=== PATIENT | female | born 1955 | race Caucasian/White ===

== ENCOUNTER 2017-02-10 12:29 | Inpatient (IN) ==
[2017-02-10] MEDS ORDERED: *HR* Propofol 200 MG/20 ML VIAL IVP ONE (12:41)
[2017-02-10] MEDS ORDERED: *HR* FentaNYL (PF) 100 MCG/2 ML VIAL ONE (12:41)
[2017-02-10] MEDS ORDERED: *HR* Midazolam HCl 2 MG/2 ML VIAL ONE (12:41)
[2017-02-10] MEDS ORDERED: Lidocaine -MPF 2% 2 ML VIAL ONE (12:41)
[2017-02-10] MEDS ORDERED: Lidocaine -MPF 4% 5 ML AMPUL ONE (12:41)
--- NOTE | 2017-02-10 12:50 | Anesthesia Evaluation PreOp ---
Date of Encounter: 02/10/17 Time of Encounter: 12:48 - Past History Planned Operation: Dutch fundoplication Cardiac History: Denies any Significant Hx Pulmonary History: Denies Any Significant HX DIRECTOR OF MATERIALS MANAGEMENT History: Denies Any Significant HX Other Medical History: Thyroid (nodule), Other (paraesophageal hernia) Anesthesia History: No Prior Anesthetic Complications, Past Anesthesia (foot bone spurs removal, T&A) Alcohol Use: none Drug use: none Medications and Allergies No Known Home Drugs 02/10/17 [History] Allergies No Known Allergies Allergy (Verified 02/10/17 12:44) - Meds/Allergy Pre-op Review Medications Reviewed: Yes Allergies Reviewed: Yes Beta Blockers on Current Med List: No Anesthesia Results - Labs Laboratory Tests 10/21/16 02/01/17 08:40 13:38 Hgb 13.3 Hct 39.7 Plt Count 178 Sodium 141 Potassium 4.2 BUN 9 Creatinine 0.70 Anesthesia Exam Height: 70in Weight: 160lbs NPO (# of Hours): >8 Pain Scale: 0 Pain Scale Used: Numeric (1 - 10) - HEENT Pupil (Motor): EOMI Mallampati: II Teeth: Normal Oral Opening: Greater than 3 - DIRECTOR OF MATERIALS MANAGEMENT LOC: Oriented DIRECTOR OF MATERIALS MANAGEMENT Motor: Normal RUE, Normal LUE, Normal RLE, Normal LLE, Normal Face DIRECTOR OF MATERIALS MANAGEMENT Sensory: Normal: RUE, LUE, RLE, LLE, Face - Cardiac Rhythm: Regular Murmur: None - Pulmonary Breath Sounds: bilateral Clear Respiratory Effort: Symmetrical Anesthesia Assess/Plan ASA Score: 1 Modified Siler Scale for Level of Consciousness: Cooperative, oriented, and tranquil Anesthetic Plan: General Monitoring Plan: Standard Monitors Recovery Plan: PACU (Discussed risks of GA, questions answered and agrees to proceed.)
[2017-02-10] MEDS ORDERED: CeFAZolin Pre 2,000 MG/100 ML 2,000 MG/100 ML BAG IVPB ONE (13:07)
[2017-02-10] MEDS ORDERED: Lidocaine -MPF 1% 2 ML VIAL ID ONE (13:07)
--- NOTE | 2017-02-10 13:07 | History & Physical Report ---
Date of Encounter: 02/10/17 Time of Encounter: 13:00 24 Hour HP Update - Instructions Instructions: If the History and Physical is less than 30 days old and was completed prior to A.M. admission and or procedure and has NOT been updated on calendar day of procedure please complete this update prior to performing procedure. - Update Patient reports changes in Medical Condition: No Changes in examination, assessment, or condition: No Changes in Medication: No Preop tests/diagnostics Reviewed: Yes Surgery Remains Indicated: Yes Consent for Planned Operative Procedure(s) Verified: Yes - Pre-Operative Checklist Preoperative Checklist Indicated: Yes Prophylactic Antibiotic Ordered: Yes Home Medications Include Beta Berkley: No Is VTE Prophylaxis Indicated?: Yes
[2017-02-10] MEDS ORDERED: Ringers Solution, Lactated 1,000 ML IVC SCH ×2 (13:15→14:15)
[2017-02-10] MEDS ORDERED: *HR* Phenylephrine 10 MG/ML VIAL ONE (13:39)
[2017-02-10] MEDS ORDERED: *HR* HYDROmorphone 2 MG/ML SYRINGE ONE (13:54)
[2017-02-10] MEDS ORDERED: Dexamethasone 4 MG/ML VIAL ONE (13:55)
[2017-02-10] MEDS ORDERED: Neostigmine Methylsulfate 3 MG/3 ML SYRINGE ONE (13:55)
[2017-02-10] MEDS ORDERED: Ondansetron 4 MG/2 ML VIAL ONE (13:55)
[2017-02-10] MEDS ORDERED: *HR* HYDROmorphone (PF) 1 MG/ML SYRINGE IVP PRN (14:06)
[2017-02-10] MEDS ORDERED: *HR* Promethazine 25 MG/ML VIAL IVP PRN (14:06)
[2017-02-10] MEDS ORDERED: Ondansetron 4 MG/2 ML VIAL IVP ONE (14:06)
[2017-02-10] MEDS ORDERED: *HR* Meperidine 25 MG/ML SYRINGE IVP PRN (14:06)
[2017-02-10] MEDS ORDERED: *HR* Rocuronium Bromide 50 MG/5 ML VIAL ONE (14:30)
[2017-02-10] MEDS ORDERED: Acetaminophen IV 1,000 MG/100 ML INFUS..BTL ONE (15:32)
--- NOTE | 2017-02-10 15:42 | Operative Note ---
Date of procedure: 02/10/17 Pre-op diagnosis: Paraesophageal hernia with intermittent gastric obstruction Post-op diagnosis: same Procedure: Open repair of paraesophageal hernia. Open Maria Del Rosario fundoplication Anesthesia: DARRYL Surgeon: Alexandr Bustamante Estimated blood loss (cc): 50 Specimen: Hernia sac Condition: stable Disposition: PACU Procedure in Detail: After informed consent the patient was taken to the major operating suite placed in supine position and given adequate general anesthetic. The abdomen was prepped and draped in sterile fashion utilizing ChloraPrep standard techniques. Timeout was taken patient is identified. Made an upper midline incision between the xiphoid and the umbilicus. The abdomen was entered a significant portion of the stomach was in the chest. I divided the triangular ligament between the lateral left lobe of the liver and the diaphragm. The lateral segment of the left lobe was then folded downward and medial I divided the lesser omentum and entered the lesser sac. There was a complex hernia sac involving the diaphragmatic hiatus. I divided the anterior attachments to the stomach. A lighted bougie was placed in the esophagus to aid in esophageal identification and to assist in later Maria Del Rosario fundoplication for the appropriate tension. The right memo of the diaphragm was dissected and there was an extensive hernia sac removed from the chest posterior to the esophagus. This was divided. The dissection along the cardia of the stomach and the short gastrics was quite difficult. The hernia sac extended almost a third [address] the way down the greater curvature. This sac was folded back on itself over this entire length making the dissection quite difficult. I was able to finally divide the short gastrics to the cardia between surgical clips and using Harmonic scalpel on the gastric side. I was able to identify the left memo of the diaphragm from this lateral dissection. I fully mobilized and surrounded the esophagus. I placed a Bebe drain around the gastroesophageal junction and retracted gastroesophageal junction to the left there was even more hernia sac identified and this was removed under direct vision. The left and right memo of the diaphragm were now visible and I was able to repair the hiatal hernia using 4 stitches of 2-0 Ethibond with pledgets the cardia of the stomach was then brought behind the gastroesophageal junction and I performed a drop test and a shoeshine test. There was adequate mobility in the cardia. I created a Maria Del Rosario fundoplication using 3 stitches of 2-0 Ethibond with pledgets around a lighted bougie in the esophagus. This gave an excellent technical result. I placed 2 shoulder stitches between the Maria Del Rosario fundoplication and the diaphragm area total blood loss was 50 mL. The stomach was under no tension and intra-abdominal and the hiatus was closed to the appropriate size. The abdomen was irrigated with copious amounts of antibiotic containing solution. Midline was closed with looped 0 PDS. The skin was closed with 2-0 Vicryl and skin clips. She tolerated the procedure well.
--- NOTE | 2017-02-10 16:50 | Anesthesia Evaluation Post Op ---
Date of Encounter: 02/10/17 Time of Encounter: 16:50 - Vital Signs Vital Signs: Vital Signs/O2 Sat/Glucose, Most Current Temp Pulse Resp BP Pulse Ox 02/10/17 16:27 98.3 F 58 12 112/68 98 02/10/17 16:17 98.3 F 61 12 115/63 99 02/10/17 16:07 62 12 116/65 98 02/10/17 15:57 57 12 111/68 97 02/10/17 15:47 97.9 F 64 12 111/42 98 02/10/17 13:13 98.3 F 84 18 109/70 98 - Lungs Lungs: Clear Ascult./Percussion - Airway Airway: Non-obstructed - Cardiovascular Regular Rate - Mental Status Mental Status: Alert & Oriented, Answers Appropriately - Pain Pain Scale: 0 - Nausea Vomiting Nausea Vomiting: Not Present - Hydration Hydration: Tolerates oral liquids - Discharge PostOp Status: Discharge Patient to home
[2017-02-10] MEDS ORDERED: Ondansetron 4 MG/2 ML VIAL IVP PRN (16:55)
[2017-02-10] MEDS ORDERED: *HR* Metoprolol 5 MG/5 ML VIAL IVP PRN (16:55)
[2017-02-10] MEDS: 0.9 % Sodium Chloride 1,000 ML IVC SCH (17:27)
[2017-02-10] MEDS: *HR* HYDROmorphone (PF) 1 MG/ML SYRINGE IVP PRN ×3 (17:34→23:36)
[2017-02-10] MEDS ORDERED: *HR* Heparin 5,000 UNIT/ML VIAL SQ SCH (18:00)
[2017-02-10] MEDS: *HR* Heparin 5,000 UNIT/ML VIAL SQ SCH (18:20)
[2017-02-10] MEDS: ceFAZolin 2,000 MG in D5% in Water 100 ML IVPB SCH ×2 (18:26→23:36)
[2017-02-11] MEDS: *HR* OxyCODONE/APAP 5/325 TABLET PO PRN (03:22)
[2017-02-11 05:27] LABS: Basophils % 0.1 %; Hematocrit 39.9 % (35.3-44.9); Hemoglobin 12.8 g/dL (11.5-15.4); Immature Granulocytes % 0.4 % (0-4); Lymphocytes # 0.5 K/mcL (0.6-4.6); Lymphocytes % 6.2 %; Mean Corpuscular HGB Conc 32.1 g/dL (31.6-35.5); Mean Corpuscular Hemoglobin 28.8 pg (28.0-33.3); Mean Corpuscular Volume 89.9 fL (83.0-100.0); Monocytes # 0.5 K/mcL (0.0-1.3); Monocytes % 6.4 %; Neutrophils # 7.2 K/mcL (1.6-8.9); Platelet Count 163 K/mcL (140-400); Red Blood Count 4.44 M/mcL (3.82-4.97); Red Cell Distribution Width 12.5 % (11.5-14.5); Segmented Neutrophils % 86.9 %
[2017-02-11 05:40] LABS: BUN/Creatinine Ratio 17 (6-26); Blood Urea Nitrogen 12 mg/dL (7-20); Calcium 8.7 mg/dL (8.6-10.8); Carbon Dioxide 27 mEq/L (19-29); Chloride 104 mEq/L (98-109); Glucose 124 mg/dL (70-99); Osmolality,Calculated 289 (280-300); Potassium 4.3 mEq/L (3.5-4.5); Sodium 139 mEq/L (136-145); eGFR For African Americans > 60 (> 60); eGFR For Non-African Americans > 60 (> 60)
[2017-02-11] MEDS: *HR* Heparin 5,000 UNIT/ML VIAL SQ SCH ×2 (06:49→18:04)
[2017-02-11] MEDS: 0.9 % Sodium Chloride 1,000 ML IVC SCH ×2 (06:49→19:53)
--- NOTE | 2017-02-11 07:32 | General Surgery Progress Note ---
Date of Encounter: 02/11/17 Time of Encounter: 06:00 - Assessment and Plan (1) Paraesophageal hernia Current Visit: Yes Status: Acute POD #1 for; open repair of paraesophageal hernia. Open Maria Del Rosario fundoplication. with Dr. Bustamante on 02/10/17. On physical examination patient has abdominal tenderness as expected postoperatively, the patient denies tachycardia, chest pain, dysphasia. She denies passing gas or having a bowel movement. Start clear liquid diet with volume restriction of 300 mL per shift Supportive care and pain control IV fluids to maintain hydration at 75 ml per hour Incentive spirometer every 1 hour while awake Repeat am labs I and O's. Serial abdominal exams Vital signs per protocol Elevate head of bed to 30 degrees Daily dressing change- complete today PPI therapy daily Protonix 40 mg DVT prophylaxis heparin 500 units subcutaneous every 12 hours Encourage ambulation. ambulate patient and have her walk the hallways 3 times a day. Up to chair BID. Will continue to follow and assess. If patient continues to progress may consider DC 2-3 days if indicated. The assessment and plan as outlined above was discussed with the patient and/or family members who expressed understanding and agreement. All questions were answered. (2) Gastric outlet obstruction Current Visit: Yes Status: Acute Subjective Patient reports: still having pain, voiding w/o difficulty, no flatus, no bowel movement, nausea, afebrile Narrative: The patient was seen and examined. Patient states that she has abdominal tenderness postoperatively however, she has been up to urinate without difficulty. Patient denies passing gas or having a bowel movement. Patient has tolerated her ice chips well. She admits some nausea that is transient. Patient has bowel sounds. Will encourage ambulation. Objective Vital Signs - Last 8 Hours Temp Pulse Resp BP Pulse Ox 02/11/17 06:40 98.9 F 79 16 102/62 96 02/11/17 03:58 98.1 F 80 14 103/66 94 02/10/17 23:56 98.1 F 70 14 97/60 93 Intake and Output 02/10/17 02/10/17 02/11/17 15:59 23:59 07:59 Intake Total 100 / 100 100 / 100 1160 / 1160 Output Total 50 / 50 300 / 300 200 / 200 Balance 50 / 50 -200 / -200 960 / 960 Intake: IV Fluids 100 / 100 100 / 100 1100 / 1100 0.9 % Sodium Chloride 1, 1000 / 1000 000 ML @ 75 mls/hr IVC . [id number] [facility] Rx#: [id number] Ancef Premix 2,000 MG/100 100 / 100 ML 2,000 mg In 100 ml @ 200 mls/hr IVPB PREOP ONE Rx#:[id number] Ancef 2,000 MG In 100 / 100 100 / 100 Dextrose 5% 100 ML @ 200 mls/hr IVPB Q8HR [facility] Rx#: [id number] Oral 0 / 0 60 / 60 Output: Urine 300 / 300 200 / 200 Estimated Blood Loss 50 / 50 Other: Weight 73.028 kg Blood Glucose* 147 95 - General physical appearance well developed, well nourished, no distress, moderate pain - Eyes PERRL, normal ocular movement - ENT normal nares, normal mucosa, atraumatic, normocephalic, CN 2-12 grossly intact - Neck Neck exam: no masses, trachea midline, no lymphadectomy - Respiratory normal expansion, normal respiratory effort, clear to auscultation - Cardiovascular Cardiovascular exam: Present: RRR, no murmurs/rubs/gallops. Absent: JVD - Abdomen Abdomen: Present: bowel sounds present, soft, tender (Postoperative tenderness as expected). Absent: guarding, rebound, rigid, peritoneal Abdominal Tenderness: diffusely - Incision Incision: Present: clean and dry, intact - Integumentary no rash, no abnormal pigmentation - Neurologic CN 2-12 grossly intact, normal coordination, normal sensation - Musculoskeletal normal gait, normal posture - Psychiatric oriented to time, oriented to person, oriented to place, speech is normal, memory intact - Labs 02/11/17 04:27 02/11/17 04:27 Diabetes panel 02/11/17 Range/Units 04:27 Sodium 139 (136-145) mEq/L Potassium 4.3 (3.5-4.5) mEq/L Chloride 104 (98-109) mEq/L Carbon Dioxide 27 (19-29) mEq/L BUN 12 (7-20) mg/dL Creatinine 0.72 (0.57-1.11) mg/dL Glucose 124 H (70-99) mg/dL Calcium 8.7 (8.6-10.8) mg/dL Calcium panel 02/11/17 Range/Units 04:27 Calcium 8.7 (8.6-10.8) mg/dL Pituitary panel 02/11/17 Range/Units 04:27 Sodium 139 (136-145) mEq/L Potassium 4.3 (3.5-4.5) mEq/L Chloride 104 (98-109) mEq/L Carbon Dioxide 27 (19-29) mEq/L BUN 12 (7-20) mg/dL Creatinine 0.72 (0.57-1.11) mg/dL Glucose 124 H (70-99) mg/dL Calcium 8.7 (8.6-10.8) mg/dL Adrenal panel 02/11/17 Range/Units 04:27 Sodium 139 (136-145) mEq/L Potassium 4.3 (3.5-4.5) mEq/L Chloride 104 (98-109) mEq/L Carbon Dioxide 27 (19-29) mEq/L BUN 12 (7-20) mg/dL Creatinine 0.72 (0.57-1.11) mg/dL Glucose 124 H (70-99) mg/dL Calcium 8.7 (8.6-10.8) mg/dL - VTE Documentation of Mechanical Device: Intermittent pneumatic compression device Consult Discharge Plan - Plan Referrals: Alexandr Bustamante MD [Partnered Physician] - 03/01/17 11:00 am Leilani Cade CNP [Primary Care Provider] - - Attending Attestation I examined this patient and my medical decision-making was reviewed with the MANAGER MONITORING/PA/Advanced Practice Nurse/Resident Physician. I agree with the documented findings, disposition and treatment plan as described except to the extent set forth below. The patient is seen and evaluated morning rounds. She is having some neck and shoulder pain but no chest pain. She has a few bowel sounds. We will start volume restricted clear liquids today Alexandr Bustamante MD FACS
[2017-02-11] MEDS: Pantoprazole 40 MG VIAL IVP SCH (07:46)
[2017-02-11] MEDS: *HR* HYDROmorphone (PF) 1 MG/ML SYRINGE IVP PRN (12:51)
[2017-02-12] MEDS: *HR* Heparin 5,000 UNIT/ML VIAL SQ SCH ×2 (05:20→18:48)
[2017-02-12 06:12] LABS: Basophils % 0.1 %; Hemoglobin 13.2 g/dL (11.5-15.4); Immature Granulocytes % 0.5 % (0-4); Lymphocytes # 0.8 K/mcL (0.6-4.6); Lymphocytes % 8.2 %; Mean Corpuscular Hemoglobin 29.1 pg (28.0-33.3); Mean Corpuscular Volume 88.3 fL (83.0-100.0); Mean Platelet Volume 10.7 fL (9.4-12.4); Monocytes # 0.7 K/mcL (0.0-1.3); Neutrophils # 8.5 K/mcL (1.6-8.9); Platelet Count 142 K/mcL (140-400); Red Blood Count 4.53 M/mcL (3.82-4.97); Red Cell Distribution Width 12.7 % (11.5-14.5); Segmented Neutrophils % 84.2 %
[2017-02-12 06:23] LABS: BUN/Creatinine Ratio 13 (6-26); Blood Urea Nitrogen 8 mg/dL (7-20); Carbon Dioxide 26 mEq/L (19-29); Chloride 105 mEq/L (98-109); Glucose 129 mg/dL (70-99); Osmolality,Calculated 286 (280-300); Potassium 3.9 mEq/L (3.5-4.5); Sodium 138 mEq/L (136-145); eGFR For African Americans > 60 (> 60); eGFR For Non-African Americans > 60 (> 60)
[2017-02-12] MEDS: Pantoprazole 40 MG VIAL IVP SCH (08:33)
[2017-02-12] MEDS ORDERED: Acetaminophen 325 MG TABLET PO ONE (08:39)
[2017-02-12] MEDS: 0.9 % Sodium Chloride 1,000 ML IVC SCH ×2 (08:41→21:25)
--- NOTE | 2017-02-12 09:18 | General Surgery Progress Note ---
Date of Encounter: 02/12/17 Time of Encounter: 06:00 - Assessment and Plan (1) Paraesophageal hernia Current Visit: Yes Status: Acute POD #2 for; open repair of paraesophageal hernia. Open Maria Del Rosario fundoplication. with Dr. Bustamante on 02/10/17. On physical examination patient has abdominal tenderness as expected postoperatively, the patient denies tachycardia, chest pain, dysphasia. She still denies passing gas or having a bowel movement. Patient has not been ambulatory in the hallways as instructed yesterday. Patient reports that she "was feeling lazy ". Patient states that she will ambulate down the hallways today. Patient says that she is nauseous when she eats sweets however she has not vomited. Patient states that she is tolerating her clear liquids and ice chips without difficulty. Continue clear liquid diet with volume restriction of 300 mL per shift Supportive care and pain control IV fluids to maintain hydration at 75 ml per hour Incentive spirometer every 1 hour while awake Repeat am labs I and O's. Serial abdominal exams Vital signs per protocol Elevate head of bed to 30 degrees Daily dressing change- complete today PPI therapy daily Protonix 40 mg DVT prophylaxis heparin 500 units subcutaneous every 12 hours Encourage ambulation. ambulate patient and have her walk the hallways 3 times a day. Up to chair BID. Will continue to follow and assess. If patient continues to progress may consider DC 1-2 days if indicated. The assessment and plan as outlined above was discussed with the patient and/or family members who expressed understanding and agreement. All questions were answered. (2) Gastric outlet obstruction Current Visit: Yes Status: Acute Subjective Patient reports: still having pain, pain is less, tolerating liquids well, voiding w/o difficulty, no flatus, no bowel movement, nausea, afebrile Narrative: The patient was seen and examined. Patient reports continued abdominal discomfort and tenderness and skin sensitivity to light touch. However, she states that this is a little improved. Patient has been up to ambulate around her room however she admits that she "was feeling lazy yesterday "and did not go out in the hallway to ambulate as instructed. Patient states she will ambulate hallways today. Patient has been urinating without difficulty. She has been tolerating her clear liquid diet with fluid restriction of 300 mL per shift well although she states she has intermittent episodes of nausea not related to food. Patient denies passage of gas or bowel movement. Objective Vital Signs - Last 8 Hours Temp Pulse Resp BP Pulse Ox 02/12/17 06:55 99.0 F 96 14 124/72 95 02/12/17 03:06 98.0 F 89 14 105/62 95 Intake and Output 02/11/17 02/12/17 02/12/17 23:59 07:59 15:59 Intake Total 1000 / 1000 1360 / 1360 Output Total 800 / 800 850 / 850 Balance 200 / 200 -850 / -850 1360 / 1360 Intake: IV Fluids 1000 / 1000 1000 / 1000 0.9 % Sodium Chloride 1, 1000 / 1000 1000 / 1000 000 ML @ 75 mls/hr IVC . [id number] Rx#: [id number] Oral 360 / 360 Output: Urine 800 / 800 850 / 850 Other: # Bowel Movements 0 - General physical appearance well developed, well nourished, moderate distress, moderate pain - Eyes PERRL, normal ocular movement - ENT normal nares, atraumatic, normocephalic, CN 2-12 grossly intact - Neck Neck exam: no masses, trachea midline - Respiratory normal expansion, normal respiratory effort, clear to auscultation - Cardiovascular Cardiovascular exam: Present: RRR, no murmurs/rubs/gallops. Absent: JVD - Abdomen Abdomen: Present: bowel sounds present, soft, tender (postoperative as expected) . Absent: distended, guarding, rebound, rigid, peritoneal - Incision Incision: Present: clean and dry, intact - Integumentary no rash, no abnormal pigmentation - Neurologic CN 2-12 grossly intact, normal coordination - Musculoskeletal normal posture - Psychiatric oriented to time, oriented to person, oriented to place, speech is normal, memory intact - Labs 02/12/17 05:34 02/12/17 05:34 Diabetes panel 02/12/17 Range/Units 05:34 Sodium 138 (136-145) mEq/L Potassium 3.9 (3.5-4.5) mEq/L Chloride 105 (98-109) mEq/L Carbon Dioxide 26 (19-29) mEq/L BUN 8 (7-20) mg/dL Creatinine 0.64 (0.57-1.11) mg/dL Glucose 129 H (70-99) mg/dL Calcium 9.0 (8.6-10.8) mg/dL Calcium panel 02/12/17 Range/Units 05:34 Calcium 9.0 (8.6-10.8) mg/dL Pituitary panel 02/12/17 Range/Units 05:34 Sodium 138 (136-145) mEq/L Potassium 3.9 (3.5-4.5) mEq/L Chloride 105 (98-109) mEq/L Carbon Dioxide 26 (19-29) mEq/L BUN 8 (7-20) mg/dL Creatinine 0.64 (0.57-1.11) mg/dL Glucose 129 H (70-99) mg/dL Calcium 9.0 (8.6-10.8) mg/dL Adrenal panel 02/12/17 Range/Units 05:34 Sodium 138 (136-145) mEq/L Potassium 3.9 (3.5-4.5) mEq/L Chloride 105 (98-109) mEq/L Carbon Dioxide 26 (19-29) mEq/L BUN 8 (7-20) mg/dL Creatinine 0.64 (0.57-1.11) mg/dL Glucose 129 H (70-99) mg/dL Calcium 9.0 (8.6-10.8) mg/dL - VTE Documentation of Mechanical Device: Intermittent pneumatic compression device Consult Discharge Plan - Plan Referrals: Alexandr Bustamante MD [Partnered Physician] - 03/01/17 11:00 am Leilani Cade CNP [Primary Care Provider] - - Attending Attestation I examined this patient and my medical decision-making was reviewed with the FORKLIFT TRUCK OPERATOR/PA/Advanced Practice Nurse/Resident Physician. I agree with the documented findings, disposition and treatment plan as described except to the extent set forth below. The patient is seen and evaluated on morning rounds. She is doing quite well with no chest pain. Her reflux symptoms and dysphagia are gone. She is to ambulate more aggressively today. Maintaining clear liquid diet Alexandr Bustamante MD FACS
[2017-02-12] MEDS: Acetaminophen 325 MG TABLET PO PRN (16:02)
[2017-02-12] MEDS: *HR* OxyCODONE/APAP 5/325 TABLET PO PRN (18:48)
[2017-02-13] MEDS: *HR* Heparin 5,000 UNIT/ML VIAL SQ SCH (05:06)
[2017-02-13 05:35] LABS: Basophils % 0.2 %; Hematocrit 34.8 % (35.3-44.9); Immature Granulocytes % 0.5 % (0-4); Lymphocytes % 15.8 %; Mean Corpuscular Hemoglobin 29.5 pg (28.0-33.3); Mean Corpuscular Volume 89.2 fL (83.0-100.0); Monocytes # 0.6 K/mcL (0.0-1.3); Monocytes % 8.9 %; Neutrophils # 4.6 K/mcL (1.6-8.9); Platelet Count 120 K/mcL (140-400); Red Cell Distribution Width 12.7 % (11.5-14.5); Segmented Neutrophils % 74.6 %
[2017-02-13 05:36] LABS: Hemoglobin 11.5 g/dL (11.5-15.4)
[2017-02-13 05:55] LABS: Calcium 8.5 mg/dL (8.6-10.8); Carbon Dioxide 30 mEq/L (19-29); Chloride 107 mEq/L (98-109); Glucose 110 mg/dL (70-99); Osmolality,Calculated 290 (280-300); Potassium 3.6 mEq/L (3.5-4.5); Sodium 141 mEq/L (136-145); eGFR For African Americans > 60 (> 60); eGFR For Non-African Americans > 60 (> 60)
[2017-02-13 06:21] LABS: BUN/Creatinine Ratio 10 (6-26); Blood Urea Nitrogen 6 mg/dL (7-20)
[2017-02-13] MEDS: Pantoprazole 40 MG VIAL IVP SCH (07:43)
[2017-02-13] MEDS: Acetaminophen 325 MG TABLET PO PRN (07:43)
--- NOTE | 2017-02-13 08:20 | Discharge Summary ---
<Naya Clark - Last Filed: 02/13/17 11:39> Date of Encounter: 02/13/17 Time of Encounter: 07:00 - Discharge Diagnosis (1) Paraesophageal hernia Priority: Primary Status: Resolved (2) Gastric outlet obstruction Priority: Primary Status: Resolved - Discharge Medications Prescriptions: OxyCODONE/APAP 5/325 [Percocet 5/325 MG] 1 each PO Q4HR #30 tablet Acetaminophen [Tylenol] 650 mg PO Q6HR #30 tablet Ondansetron HCl [Zofran] 4 mg PO Q6HR #30 tablet Docusate Sodium 100 mg PO BID #60 capsule Home Medications: Acetaminophen [Tylenol] 650 mg PO Q6HR #30 tablet 02/13/17 [Rx] Docusate Sodium 100 mg PO BID #60 capsule 02/13/17 [Rx] Ondansetron HCl [Zofran] 4 mg PO Q6HR #30 tablet 02/13/17 [Rx] OxyCODONE/APAP 5/325 [Percocet 5/325 MG] 1 each PO Q4HR #30 tablet 02/13/17 [Rx] Allergies/Adverse Reactions: Allergies No Known Allergies Allergy (Verified 02/10/17 12:44) General Surgery Exam Initial Vital Signs Temp Pulse Resp BP Pulse Ox 98.3 F 84 18 109/70 98 02/10/17 13:13 02/10/17 13:13 02/10/17 13:13 02/10/17 13:13 02/10/17 13:13 - General physical appearance well developed, well nourished, no distress, moderate pain - Eyes PERRL, normal ocular movement - ENT normal mucosa, atraumatic, normocephalic, CN 2-12 grossly intact - Neck no masses, trachea midline - Respiratory normal expansion, normal respiratory effort, clear to auscultation - Cardiovascular Cardiovascular exam: Present: RRR, no murmurs/rubs/gallops. Absent: JVD - Abdomen Abdomen general surgery: Present: bowel sounds present, soft, tender ( Postoperative tenderness as expected) - Incision Incision: Present: clean and dry, intact - Integumentary Integumentary general surgery: Present: warm and dry, no abnormal pigmentation. Absent: rash - Neurologic Present: CN 2-12 grossly intact, normal coordination, normal sensation - Musculoskeletal Present: normal gait, normal posture - Psychiatric Psychiatric general surgery: Present: A&Ox3, appropriate, speech is normal, memory intact Date of admission: 02/10/17 16:43 Primary care physician: Leilani Cade Discharging clinician: Alexandr Bustamante Anticipated date of discharge: 02/13/17 - Patient Status Disposition: Home, Self-Care Condition: Good Overall status at discharge: patient is progressing back to baseline - Discharge Instructions Follow Up With: Alexandr Bustamante MD [Partnered Physician] - 03/01/17 11:00 am Leilani Cade, COMMUTATOR UNDERCUTTER [Primary Care Provider] - Additional Instructions: 1. May shower today. No tub bath for 2 weeks. 2. Wash incisions with soap and water and pat dry daily. 3. No lifting more than 10-15 lbs for 4-[address] off narcotics for over 24 hours and able to react safely in the car. 5. May climb stairs. Wound care: -Wash incisions with soap and water in the shower, pack with quarter-inch plain gauze, cover with 4 x 4 gauze and tape to secure daily. - Diet and Activity Activity: increase activity as tolerated Diet: other (Full liquid diet) - Hospital Course Hospital course: Ms. Baldwin is a 61 year old female with a history of paraesophageal hernia with intermittent gastric obstruction who was surgically treated with an open repair of her esophageal hernia and open Maria Del Rosario fundoplication by on 09/28. Patient tolerated the procedure well. Patient has been recovering well. She has been up to ambulate without difficulty. She has been urinating without difficulty. She has been passing gas. She has been tolerating her full liquid diet well and swallowing without difficulty. She denies nausea or vomiting. She has normoactive bowel sounds and minimal tenderness over incision site as expected. No peritoneal signs. No chest pain or palpitations. Pain is under control. Patient states that she would rather take just Tylenol then narcotics. Vital stable. Afebrile. Patient is clear from a surgical standpoint to be discharged home. - Time Spent with Patient Total time spent providing and/or coordinating discharge services: Less than 30 minutes Labs on day of discharge: Labs from last 24 hours 02/13/17 02/13/17 04:57 04:57 WBC 6.2 RBC 3.90 Hgb 11.5 D Hct 34.8 L MCV 89.2 MCH 29.5 MCHC 33.0 RDW 12.7 Plt Count 120 L MPV 11.0 Immature Gran % 0.5 Seg Neutrophils % 74.6 Lymphocytes % 15.8 Monocytes % 8.9 Eosinophils % 0.0 Basophils % 0.2 Neutrophils # 4.6 Lymphocytes # 1.0 Monocytes # 0.6 Eosinophils # 0.0 Basophils # 0.0 Sodium 141 Potassium 3.6 Chloride 107 Carbon Dioxide 30 H BUN 6 L Creatinine 0.61 Est GFR ( Amer) > 60 Est GFR (Non-Af Amer) > 60 BUN/Creatinine Ratio 10 Glucose 110 H Calculated Osmolality 290 Calcium 8.5 L <Dianna,Alexandr T - Last Filed: 02/13/17 14:48> Date of Encounter: 02/13/17 - Discharge Diagnosis (1) Paraesophageal hernia Status: Resolved (2) Gastric outlet obstruction Status: Resolved General Surgery Exam Initial Vital Signs Temp Pulse Resp BP Pulse Ox 98.3 F 84 18 109/70 98 02/10/17 13:13 02/10/17 13:13 02/10/17 13:13 02/10/17 13:13 02/10/17 13:13 Date of admission: 02/10/17 16:43 Primary care physician: Leilani Cade - Hospital Course Hospital course: Ms. Baldwin is a 61 year old female - Time Spent with Patient Total time spent providing and/or coordinating discharge services: Labs on day of discharge: Labs from last 24 hours 02/13/17 02/13/17 04:57 04:57 WBC 6.2 RBC 3.90 Hgb 11.5 D Hct 34.8 L MCV 89.2 MCH 29.5 MCHC 33.0 RDW 12.7 Plt Count 120 L MPV 11.0 Immature Gran % 0.5 Seg Neutrophils % 74.6 Lymphocytes % 15.8 Monocytes % 8.9 Eosinophils % 0.0 Basophils % 0.2 Neutrophils # 4.6 Lymphocytes # 1.0 Monocytes # 0.6 Eosinophils # 0.0 Basophils # 0.0 Sodium 141 Potassium 3.6 Chloride 107 Carbon Dioxide 30 H BUN 6 L Creatinine 0.61 Est GFR ( Amer) > 60 Est GFR (Non-Af Amer) > 60 BUN/Creatinine Ratio 10 Glucose 110 H Calculated Osmolality 290 Calcium 8.5 L - Attending Attestation I examined this patient and my medical decision-making was reviewed with the STORE MANAGER/PA/Advanced Practice Nurse/Resident Physician. I agree with the documented findings, disposition and treatment plan as described except to the extent set forth below. The patient is seen and evaluated on morning rounds. She has had much improvement in her swallowing and has tolerated full liquids. She is ready for discharge. I will see her one to 2 weeks in the office. Alexandr Bustamante MD FACS
[2017-02-13 10:31] VITALS: BP 110/69
[2017-02-13] MEDS: *HR* OxyCODONE/APAP 5/325 TABLET PO PRN (12:19)
== END 2017-02-13 12:57 | disposition home or self-care (01) | DRG 327 ==
LOC: SAMDAY 12:29 → 3ANU 16:43
PROVIDERS: ADMIT Surgery; ATTEND Surgery

== ENCOUNTER 2017-05-11 16:22 | Inpatient (IN) ==
[2017-05-11] MEDS ORDERED: Naloxone 0.4 MG/ML INJ IVP PRN (16:33)
[2017-05-11] MEDS ORDERED: Acetaminophen IV 1,000 MG/100 ML INFUS..BTL IVPB PRN (16:44)
[2017-05-11] MEDS ORDERED: *HR* HYDROmorphone (PF) 1 MG/ML SYRINGE IVP PRN (16:45)
--- NOTE | 2017-05-11 16:51 | Event Note ---
Date of Encounter: 05/11/17 Time of Encounter: 16:48 Patient was seen and evaluated by Dr. Bustamante in the outpatient clinic today. She had an UGI complete today which is concerning for an esophageal perforation. The patient will be admitted for further work-up and treatment. Please see History and Physical which was complete in [facility] per Dr. Bustamante. A copy has been placed at the nurses station in the patient's folder as well as in the medical record folder to be scanned into medical records. Orders complete.
[2017-05-11 17:42] LABS: Basophils % 0.2 %; Eosinophils % 0.6 %; Hematocrit 40.1 % (35.3-44.9); Hemoglobin 13.5 g/dL (11.5-15.4); Immature Granulocytes % 0.2 % (0-4); Lymphocytes # 1.4 K/mcL (0.6-4.6); Lymphocytes % 26.8 %; Mean Corpuscular HGB Conc 33.7 g/dL (31.6-35.5); Mean Corpuscular Hemoglobin 29.2 pg (28.0-33.3); Mean Corpuscular Volume 86.6 fL (83.0-100.0); Mean Platelet Volume 11.5 fL (9.4-12.4); Monocytes # 0.4 K/mcL (0.0-1.3); Monocytes % 8.3 %; Neutrophils # 3.2 K/mcL (1.6-8.9); Platelet Count 155 K/mcL (140-400); Red Blood Count 4.63 M/mcL (3.82-4.97); Segmented Neutrophils % 63.9 %
[2017-05-11] MEDS: 0.9 % Sodium Chloride 1,000 ML IVC SCH (19:06)
[2017-05-11] MEDS: Pantoprazole 40 MG VIAL IVP SCH (19:06)
[2017-05-11 19:25] LABS: BUN/Creatinine Ratio 15 (6-26); Blood Urea Nitrogen 10 mg/dL (7-20); Carbon Dioxide 26 mEq/L (19-29); Glucose 83 mg/dL (70-99); Osmolality,Calculated 290 (280-300); Sodium 141 mEq/L (136-145); eGFR For African Americans > 60 (> 60); eGFR For Non-African Americans > 60 (> 60)
[2017-05-11 19:26] LABS: Calcium 9.5 mg/dL (8.6-10.8); Chloride 106 mEq/L (98-109); Potassium 3.8 mEq/L (3.5-4.5)
[2017-05-11] MEDS: Fluticasone Propionate Nasal 50 MCG/SPRAY BOTTLE NS SCH (21:15)
[2017-05-12] MEDS: 0.9 % Sodium Chloride 1,000 ML IVC SCH ×2 (05:18→20:10)
[2017-05-12] MEDS: Pantoprazole 40 MG VIAL IVP SCH (08:38)
[2017-05-12] MEDS: Fluticasone Propionate Nasal 50 MCG/SPRAY BOTTLE NS SCH (08:48)
[2017-05-12] MEDS ORDERED: Lidocaine -MPF 1% 5 ML AMPUL INFILT ONE (10:52)
[2017-05-12] MEDS ORDERED: Lidocaine -MPF 1% 2 ML VIAL INFILT ONE (11:15)
[2017-05-12 11:22] LABS: Phosphorous 3.9 mg/dL (2.3-4.7)
[2017-05-12] MEDS ORDERED: D10% in Water 500 ML IVC PRN (11:39)
--- NOTE | 2017-05-12 13:25 | General Surgery Progress Note ---
<Gracie Ballesteros - Last Filed: 05/12/17 13:22> Date of Encounter: 05/12/17 Time of Encounter: 13:00 - Assessment and Plan (1) Esophageal perforation Current Visit: Yes Status: Acute CT reviewed with Dr. Bustamante Continue bowel rest- may chew gum and suck on hard tac candy PICC line TPN - total fluid rate 100ml/hour (MIV + TPN) IV fluids Supportive care IV antibiotics- Zosyn Consider repeat CT on Tuesday05/17/17 (2) DVT prophylaxis Current Visit: Yes Status: Acute Heparin 5,000 units SQ twice daily for DVT prophylaxis Ambulate hallways TID with assistance Subjective Patient reports: no new complaints, still having pain, voiding w/o difficulty, no flatus, no bowel movement, afebrile Objective Vital Signs - Last 8 Hours Temp Pulse Resp BP Pulse Ox 05/12/17 10:37 97.6 F 64 16 99/62 97 05/12/17 06:54 97.5 F L 58 16 114/66 98 Intake and Output 05/11/17 05/12/17 05/12/17 23:59 07:59 15:59 Intake Total 0 / 0 1000 / 1000 0 / 0 Output Total 0 / 0 450 / 450 850 / 850 Balance 0 / 0 550 / 550 -850 / -850 Intake: IV Fluids 1000 / 1000 0.9 % Sodium Chloride 1, 1000 / 1000 000 ML @ 100 mls/hr IVC . Q10H [facility] Rx#:[id number] Oral 0 / 0 0 / 0 0 / 0 Output: Urine 0 / 0 450 / 450 850 / 850 Other: Meal NPO Percent of Meal Consumed 0% # Voids 3 # Bowel Movements 0 0 Weight 65.034 kg 65.2 kg Blood Glucose* 85 70 Patient Weight 05/12/17 23:59 Weight 65.2 kg - General physical appearance well developed, well nourished, no distress - Eyes normal ocular movement - ENT dry mucosa, atraumatic, normocephalic - Neck Neck exam: trachea midline - Respiratory normal expansion, normal respiratory effort, clear to auscultation - Cardiovascular Cardiovascular exam: Present: RRR - Abdomen Abdomen: Present: bowel sounds present, soft, tender (mild) Hernia: epigastric - Neurologic CN 2-12 grossly intact - Musculoskeletal normal gait, normal posture - Psychiatric oriented to time, oriented to person, oriented to place, speech is normal, memory intact - Labs 05/11/17 17:30 05/12/17 10:56 Diabetes panel 05/11/17 05/12/17 05/12/17 Range/Units 18:11 10:56 10:56 Sodium 141 (136-145) mEq/L Potassium 3.8 4.0 (3.5-4.5) mEq/L Chloride 106 (98-109) mEq/L Carbon Dioxide 26 (19-29) mEq/L BUN 10 (7-20) mg/dL Creatinine 0.66 (0.57-1.11) mg/dL Glucose 83 (70-99) mg/dL Calcium 9.5 (8.6-10.8) mg/dL Triglycerides 95 (< 150) mg/dL Calcium panel 05/11/17 05/12/17 Range/Units 18:11 10:56 Calcium 9.5 (8.6-10.8) mg/dL Phosphorus 3.9 (2.3-4.7) mg/dL Pituitary panel 05/11/17 05/12/17 Range/Units 18:11 10:56 Sodium 141 (136-145) mEq/L Potassium 3.8 4.0 (3.5-4.5) mEq/L Chloride 106 (98-109) mEq/L Carbon Dioxide 26 (19-29) mEq/L BUN 10 (7-20) mg/dL Creatinine 0.66 (0.57-1.11) mg/dL Glucose 83 (70-99) mg/dL Calcium 9.5 (8.6-10.8) mg/dL Adrenal panel 05/11/17 05/12/17 Range/Units 18:11 10:56 Sodium 141 (136-145) mEq/L Potassium 3.8 4.0 (3.5-4.5) mEq/L Chloride 106 (98-109) mEq/L Carbon Dioxide 26 (19-29) mEq/L BUN 10 (7-20) mg/dL Creatinine 0.66 (0.57-1.11) mg/dL Glucose 83 (70-99) mg/dL Calcium 9.5 (8.6-10.8) mg/dL - Imaging Additional Studies: Abdomen CT 05/11/17 16:42 IMPRESSION: 1. Findings are consistent with patient history of focal distal esophageal leak at the patient's Maria Del Rosario fundoplication, with a 3.1 x 1.6 cm fluid and gas collection lying anteromedial to the Maria Del Rosario fundoplication within the lower mediastinum, likely a small phlegmon/abscess. There is no evidence of pneumomediastinum or intraperitoneal free air. 2. No acute intrapulmonary findings. 3. Stable hepatic cysts. D/ / 05/11/2017 20:53:28 Fernando Smith MD / Natasha Diaz Interpreting Provider: Fernando Smith MD Chest CT 05/11/17 16:42 IMPRESSION: 1. Findings are consistent with patient history of focal distal esophageal leak at the patient's Maria Del Rosario fundoplication, with a 3.1 x 1.6 cm fluid and gas collection lying anteromedial to the Maria Del Rosario fundoplication within the lower mediastinum, likely a small phlegmon/abscess. There is no evidence of pneumomediastinum or intraperitoneal free air. 2. No acute intrapulmonary findings. 3. Stable hepatic cysts. D/ / 05/11/2017 20:53:28 Fernando Smith MD / Natasha Diaz Interpreting Provider: Fernando Smith MD Consult Discharge Plan - Plan Referrals: Leilani Cade, CORRECTIONAL CASE MANAGER [Primary Care Provider] - - Attending Attestation For this encounter, I have reviewed the [employer] INSULATOR or PA documentation, treatment plan, and medical decision making; and I have had face to face time with this patient. <Alexandr Bustamante - Last Filed: 05/12/17 15:46> Date of Encounter: 05/12/17 Objective Vital Signs - Last 8 Hours Temp Pulse Resp BP Pulse Ox 05/12/17 15:14 97.6 F 72 16 103/64 94 05/12/17 10:37 97.6 F 64 16 99/62 97 Intake and Output 05/11/17 05/12/17 05/12/17 23:59 07:59 15:59 Intake Total 0 / 0 1000 / 1000 0 / 0 Output Total 0 / 0 450 / 450 1350 / 1350 Balance 0 / 0 550 / 550 -1350 / -1350 Intake: IV Fluids 1000 / 1000 0.9 % Sodium Chloride 1, 1000 / 1000 000 ML @ 100 mls/hr IVC . Q10H [facility] Rx#:[id number] Oral 0 / 0 0 / 0 0 / 0 Output: Urine 0 / 0 450 / 450 1350 / 1350 Other: Meal NPO Percent of Meal Consumed 0% # Voids 3 # Bowel Movements 0 0 Weight 65.034 kg 65.2 kg Blood Glucose* 85 70 Patient Weight 05/12/17 23:59 Weight 65.2 kg - Labs 05/11/17 17:30 05/12/17 10:56 Diabetes panel 05/11/17 05/12/17 05/12/17 Range/Units 18:11 10:56 10:56 Sodium 141 (136-145) mEq/L Potassium 3.8 4.0 (3.5-4.5) mEq/L Chloride 106 (98-109) mEq/L Carbon Dioxide 26 (19-29) mEq/L BUN 10 (7-20) mg/dL Creatinine 0.66 (0.57-1.11) mg/dL Glucose 83 (70-99) mg/dL Calcium 9.5 (8.6-10.8) mg/dL Triglycerides 95 (< 150) mg/dL Calcium panel 05/11/17 05/12/17 Range/Units 18:11 10:56 Calcium 9.5 (8.6-10.8) mg/dL Phosphorus 3.9 (2.3-4.7) mg/dL Pituitary panel 05/11/17 05/12/17 Range/Units 18:11 10:56 Sodium 141 (136-145) mEq/L Potassium 3.8 4.0 (3.5-4.5) mEq/L Chloride 106 (98-109) mEq/L Carbon Dioxide 26 (19-29) mEq/L BUN 10 (7-20) mg/dL Creatinine 0.66 (0.57-1.11) mg/dL Glucose 83 (70-99) mg/dL Calcium 9.5 (8.6-10.8) mg/dL Adrenal panel 08/30/17 08/31/17 Range/Units 18:11 10:56 Sodium 141 (136-145) mEq/L Potassium 3.8 4.0 (3.5-4.5) mEq/L Chloride 106 (98-109) mEq/L Carbon Dioxide 26 (19-29) mEq/L BUN 10 (7-20) mg/dL Creatinine 0.66 (0.57-1.11) mg/dL Glucose 83 (70-99) mg/dL Calcium 9.5 (8.6-10.8) mg/dL - Attending Attestation The patient is seen in evaluated. I have recommended nothing by mouth and total parenteral nutrition with bowel rest to allow this area to heal. Although this is interpreted as an esophageal perforation I believe that it is a local trauma to the Maria Del Rosario fundoplication wrap after a period of retching. I am treating this more as a gastric perforation. There is absolutely no change in the mediastinum. The fluid accumulation is in the area of the wrap. We will keep her nothing by mouth and I will plan on EGD after 3-4 days to evaluate the wrap. Alexandr Bustamante MD FACS
[2017-05-12] MEDS ORDERED: Clinimix E 5%-15% SOLUTION 2,000 ML with MVI, adult with vitamin K 10 ML IVC SCH (17:00)
[2017-05-12] MEDS: Piperacillin/Tazobactam 3.375 GM in D5% in Water (Mini-Bag+) 100 ML IVPB SCH ×2 (17:11→23:48)
[2017-05-12] MEDS: *HR* Heparin 5,000 UNIT/ML VIAL SQ SCH (18:12)
[2017-05-13] MEDS: Ondansetron 4 MG/2 ML VIAL IVP PRN ×2 (03:49→09:26)
[2017-05-13 05:05] LABS: BUN/Creatinine Ratio 16 (6-26); Blood Urea Nitrogen 9 mg/dL (7-20); Calcium 8.4 mg/dL (8.6-10.8); Carbon Dioxide 24 mEq/L (19-29); Chloride 109 mEq/L (98-109); Glucose 131 mg/dL (70-99); Magnesium 1.6 mg/dL (1.6-2.6); Osmolality,Calculated 288 (280-300); Phosphorous 2.9 mg/dL (2.3-4.7); Potassium 3.5 mEq/L (3.5-4.5); Sodium 139 mEq/L (136-145); eGFR For African Americans > 60 (> 60); eGFR For Non-African Americans > 60 (> 60)
[2017-05-13] MEDS: *HR* Heparin 5,000 UNIT/ML VIAL SQ SCH ×2 (05:41→17:49)
[2017-05-13] MEDS: Pantoprazole 40 MG VIAL IVP SCH (09:26)
[2017-05-13] MEDS: Piperacillin/Tazobactam 3.375 GM in D5% in Water (Mini-Bag+) 100 ML IVPB SCH ×2 (09:27→15:48)
[2017-05-13] MEDS ORDERED: *HR* Promethazine 25 MG/ML VIAL IVP PRN (10:18)
--- NOTE | 2017-05-13 13:41 | General Surgery Progress Note ---
<VolodymyrShantel Yumiko - Last Filed: 05/13/17 14:38> Date of Encounter: 05/13/17 Time of Encounter: 13:20 - Assessment and Plan (1) Esophageal perforation Current Visit: Yes Status: Acute Esophageal perforation vs local trauma from Maria Del Rosario fundoplication (d/t post- surgical retching) and will treat as gastric perforation given that the fluid accumulation is in the area of the wrap. Supportive care -Continue TPN and Lipids Total IVF rate of 100 ml/hr -Continue bowel rest- may chew gum and suck on hard tac candy IV antibiotics- Zosyn Consider repeat CT on Tuesday05/17/17 Consider EGD Tuesday Continue PPI prophylaxis (2) DVT prophylaxis Current Visit: Yes Status: Acute Heparin injections Sub-Q Ambulate in halls SCDs when in bed Subjective Patient reports: voiding w/o difficulty, flatus, no bowel movement, nausea, vomiting, afebrile Narrative: Domonique reports feelings of nausea and dry heaves. She was recently given a dose of promethazine and states this has helped. Objective Vital Signs - Last 8 Hours Temp Pulse Resp BP Pulse Ox 05/13/17 07:00 98.4 F 74 15 103/63 95 Intake and Output 05/12/17 05/13/17 05/13/17 23:59 07:59 15:59 Intake Total 100 / 100 350 / 350 Output Total 500 / 500 900 / 900 Balance -400 / -400 -550 / -550 Intake: IV Fluids 100 / 100 350 / 350 Intralipid 20% 250 ML @ 250 / 250 21 mls/hr IVPB DAILY@1700 [facility] Rx#:[id number] Zosyn 3.375 GM In 100 / 100 100 / 100 Dextrose 5% (Minibag+) 100 ML 100 ML @ 25 mls/hr IVPB Q8HR [facility] Rx#: [id number] Oral 0 / 0 0 / 0 Output: Urine 500 / 500 900 / 900 Other: Meal NPO NPO Percent of Meal Consumed 0% Weight 62.9 kg Blood Glucose* 131 128 Patient Weight 05/13/17 23:59 Weight 62.9 kg - General physical appearance well developed, no distress - Eyes normal ocular movement - ENT atraumatic, normocephalic - Neck Neck exam: no masses, no venous distension - Respiratory normal expansion, normal respiratory effort, clear to auscultation - Cardiovascular Cardiovascular exam: Present: RRR, no murmurs/rubs/gallops - Abdomen Abdomen: Present: bowel sounds present, soft, non tender Hernia: none - Integumentary no rash - Neurologic CN 2-12 grossly intact - Musculoskeletal normal gait, normal posture - Psychiatric oriented to time, oriented to person, oriented to place, speech is normal, memory intact - Labs 05/11/17 17:30 05/13/17 04:29 Diabetes panel 05/13/17 Range/Units 04:29 Sodium 139 (136-145) mEq/L Potassium 3.5 (3.5-4.5) mEq/L Chloride 109 (98-109) mEq/L Carbon Dioxide 24 (19-29) mEq/L BUN 9 (7-20) mg/dL Creatinine 0.58 (0.57-1.11) mg/dL Glucose 131 H (70-99) mg/dL Calcium 8.4 L (8.6-10.8) mg/dL Calcium panel 05/13/17 Range/Units 04:29 Calcium 8.4 L (8.6-10.8) mg/dL Phosphorus 2.9 (2.3-4.7) mg/dL Pituitary panel 05/13/17 Range/Units 04:29 Sodium 139 (136-145) mEq/L Potassium 3.5 (3.5-4.5) mEq/L Chloride 109 (98-109) mEq/L Carbon Dioxide 24 (19-29) mEq/L BUN 9 (7-20) mg/dL Creatinine 0.58 (0.57-1.11) mg/dL Glucose 131 H (70-99) mg/dL Calcium 8.4 L (8.6-10.8) mg/dL Adrenal panel 05/13/17 Range/Units 04:29 Sodium 139 (136-145) mEq/L Potassium 3.5 (3.5-4.5) mEq/L Chloride 109 (98-109) mEq/L Carbon Dioxide 24 (19-29) mEq/L BUN 9 (7-20) mg/dL Creatinine 0.58 (0.57-1.11) mg/dL Glucose 131 H (70-99) mg/dL Calcium 8.4 L (8.6-10.8) mg/dL Consult Discharge Plan - Plan Referrals: Leilani Cade, [employer] OPERATOR [Primary Care Provider] - <Alexandr Bustamante - Last Filed: 05/15/17 08:47> Date of Encounter: 05/13/17 Objective Vital Signs - Last 8 Hours Temp Pulse Resp BP Pulse Ox 05/15/17 06:26 97.7 F 66 16 97/61 96 05/15/17 04:13 97.3 F L 66 16 101/59 95 Intake and Output 05/14/17 05/15/17 05/15/17 23:59 07:59 15:59 Intake Total 300 / 300 650 / 650 Output Total 300 / 300 400 / 400 Balance 0 / 0 250 / 250 Intake: IV Fluids 300 / 300 650 / 650 0.9 % Sodium Chloride 1, 200 / 200 000 ML @ 100 mls/hr IVC . Q10H [facility] Rx#:[id number] Ofirmev 1,000 mg/100 ml 1 200 / 200 100 / 100 ,000 mg In 100 ml @ 400 mls/hr IVPB Q6HR PRN Rx#: [id number] Intralipid 20% 250 ML @ 250 / 250 21 mls/hr IVPB DAILY@1700 [facility] Rx#:[id number] Zosyn 3.375 GM In 100 / 100 100 / 100 Dextrose 5% (Minibag+) 100 ML 100 ML @ 25 mls/hr IVPB Q8HR [facility] Rx#: [id number] Oral 0 / 0 Output: Urine 300 / 300 400 / 400 Other: Meal Dinner NPO # Bowel Movements 0 Weight 64.4 kg Blood Glucose* 118 144 Patient Weight 05/15/17 23:59 Weight 64.4 kg - Labs 05/11/17 17:30 05/15/17 04:40 Diabetes panel 05/15/17 Range/Units 04:40 Sodium 141 (136-145) mEq/L Potassium 3.9 (3.5-4.5) mEq/L Chloride 109 (98-109) mEq/L Carbon Dioxide 26 (19-29) mEq/L BUN 14 (7-20) mg/dL Creatinine 0.65 (0.57-1.11) mg/dL Glucose 76 (70-99) mg/dL Calcium 9.2 (8.6-10.8) mg/dL Calcium panel 05/15/17 Range/Units 04:40 Calcium 9.2 (8.6-10.8) mg/dL Phosphorus 3.7 (2.3-4.7) mg/dL Pituitary panel 05/15/17 Range/Units 04:40 Sodium 141 (136-145) mEq/L Potassium 3.9 (3.5-4.5) mEq/L Chloride 109 (98-109) mEq/L Carbon Dioxide 26 (19-29) mEq/L BUN 14 (7-20) mg/dL Creatinine 0.65 (0.57-1.11) mg/dL Glucose 76 (70-99) mg/dL Calcium 9.2 (8.6-10.8) mg/dL Adrenal panel 05/15/17 Range/Units 04:40 Sodium 141 (136-145) mEq/L Potassium 3.9 (3.5-4.5) mEq/L Chloride 109 (98-109) mEq/L Carbon Dioxide 26 (19-29) mEq/L BUN 14 (7-20) mg/dL Creatinine 0.65 (0.57-1.11) mg/dL Glucose 76 (70-99) mg/dL Calcium 9.2 (8.6-10.8) mg/dL - Attending Attestation I have personally performed a face to face evaluation on this patient. I have reviewed and agree with the care plan. History and Exam by me shows: The patient was seen and evaluated on morning rounds. She is complaining of some nausea but no pain. She continues nothing by mouth. We will plan convalescent EGD to evaluate the wrap prior to starting diet. Alexandr Bustamante MD FACS
[2017-05-13] MEDS: Ondansetron 4 MG/2 ML VIAL IVP SCH ×4 (15:48→21:05)
[2017-05-13] MEDS ORDERED: Clinimix E 5%-15% SOLUTION 2,000 ML with MVI, adult with vitamin K 10 ML IVC SCH (17:00)
[2017-05-13] MEDS: Acetaminophen IV 1,000 MG/100 ML INFUS..BTL IVPB PRN (21:54)
[2017-05-14] MEDS: Piperacillin/Tazobactam 3.375 GM in D5% in Water (Mini-Bag+) 100 ML IVPB SCH ×3 (00:05→17:33)
[2017-05-14] MEDS: Ondansetron 4 MG/2 ML VIAL IVP SCH ×6 (02:21→22:58)
[2017-05-14] MEDS: Acetaminophen IV 1,000 MG/100 ML INFUS..BTL IVPB PRN ×3 (04:40→21:14)
[2017-05-14 05:06] LABS: BUN/Creatinine Ratio 22 (6-26); Blood Urea Nitrogen 14 mg/dL (7-20); Carbon Dioxide 23 mEq/L (19-29); Chloride 110 mEq/L (98-109); Glucose 84 mg/dL (70-99); Magnesium 2.1 mg/dL (1.6-2.6); Osmolality,Calculated 296 (280-300); Phosphorous 3.8 mg/dL (2.3-4.7); Potassium 3.8 mEq/L (3.5-4.5); Sodium 143 mEq/L (136-145); eGFR For African Americans > 60 (> 60); eGFR For Non-African Americans > 60 (> 60)
[2017-05-14] MEDS: 0.9 % Sodium Chloride 1,000 ML IVC SCH (05:25)
[2017-05-14] MEDS: *HR* Heparin 5,000 UNIT/ML VIAL SQ SCH ×2 (05:52→18:35)
--- NOTE | 2017-05-14 09:38 | General Surgery Progress Note ---
Date of Encounter: 05/14/17 Time of Encounter: 09:37 - Assessment and Plan (1) Esophageal perforation Current Visit: Yes Status: Acute On TPN. Nothing by mouth. Continue her current therapy. Overall the patient seems to be improving. To be considered for possible EGD within the next week 24- [address] Bustamante to return 05/15/17. Subjective Patient reports: no new complaints, feels better, other (Denies any gagging or abdominal pain. ) Objective Vital Signs - Last 8 Hours Temp Pulse Resp BP Pulse Ox 05/14/17 06:56 97.9 F 69 16 99/61 96 05/14/17 04:51 98.1 F 77 16 106/66 96 Intake and Output 05/13/17 05/14/17 05/14/17 23:59 07:59 15:59 Intake Total 200 / 200 450 / 450 Output Total 1100 / 1100 0 / 0 Balance -900 / -900 450 / 450 Intake: IV Fluids 200 / 200 450 / 450 Ofirmev 1,000 mg/100 ml 1 100 / 100 100 / 100 ,000 mg In 100 ml @ 400 mls/hr IVPB Q6HR [facility]N Rx#: [id number] Intralipid 20% 250 ML @ 250 / 250 21 mls/hr IVPB DAILY@1700 [facility] Rx#:[id number] Zosyn 3.375 GM In 100 / 100 100 / 100 Dextrose 5% (Minibag+) 100 ML 100 ML @ 25 mls/hr IVPB Q8HR [facility] Rx#: [id number] Oral 0 / 0 Output: Urine 1100 / 1100 0 / 0 Other: # Bowel Movements 0 Weight 63.1 kg Blood Glucose* 128 154 Patient Weight 05/14/17 23:59 Weight 63.1 kg - General physical appearance well nourished, no distress - Abdomen Abdomen: Present: bowel sounds present, soft, non tender - Labs 05/11/17 17:30 05/14/17 04:30 Diabetes panel 05/14/17 Range/Units 04:30 Sodium 143 (136-145) mEq/L Potassium 3.8 (3.5-4.5) mEq/L Chloride 110 H (98-109) mEq/L Carbon Dioxide 23 (19-29) mEq/L BUN 14 (7-20) mg/dL Creatinine 0.63 (0.57-1.11) mg/dL Glucose 84 (70-99) mg/dL Calcium 9.0 (8.6-10.8) mg/dL Calcium panel 05/14/17 Range/Units 04:30 Calcium 9.0 (8.6-10.8) mg/dL Phosphorus 3.8 (2.3-4.7) mg/dL Pituitary panel 05/14/17 Range/Units 04:30 Sodium 143 (136-145) mEq/L Potassium 3.8 (3.5-4.5) mEq/L Chloride 110 H (98-109) mEq/L Carbon Dioxide 23 (19-29) mEq/L BUN 14 (7-20) mg/dL Creatinine 0.63 (0.57-1.11) mg/dL Glucose 84 (70-99) mg/dL Calcium 9.0 (8.6-10.8) mg/dL Adrenal panel 05/14/17 Range/Units 04:30 Sodium 143 (136-145) mEq/L Potassium 3.8 (3.5-4.5) mEq/L Chloride 110 H (98-109) mEq/L Carbon Dioxide 23 (19-29) mEq/L BUN 14 (7-20) mg/dL Creatinine 0.63 (0.57-1.11) mg/dL Glucose 84 (70-99) mg/dL Calcium 9.0 (8.6-10.8) mg/dL Consult Discharge Plan - Plan Referrals: Leilani Cade, DEANDRE [Primary Care Provider] -
[2017-05-14] MEDS: Pantoprazole 40 MG VIAL IVP SCH (09:40)
[2017-05-14] MEDS ORDERED: Clinimix E 5%-15% SOLUTION 2,000 ML with MVI, adult with vitamin K 10 ML IVC SCH (17:00)
[2017-05-15] MEDS: Ondansetron 4 MG/2 ML VIAL IVP SCH ×6 (02:11→22:46)
[2017-05-15] MEDS: Acetaminophen IV 1,000 MG/100 ML INFUS..BTL IVPB PRN (05:22)
[2017-05-15] MEDS: *HR* Heparin 5,000 UNIT/ML VIAL SQ SCH ×2 (05:23→17:50)
[2017-05-15] MEDS: 0.9 % Sodium Chloride 1,000 ML IVC SCH ×4 (05:23→19:14)
[2017-05-15 05:34] LABS: BUN/Creatinine Ratio 22 (6-26); Blood Urea Nitrogen 14 mg/dL (7-20); Calcium 9.2 mg/dL (8.6-10.8); Carbon Dioxide 26 mEq/L (19-29); Chloride 109 mEq/L (98-109); Glucose 76 mg/dL (70-99); Magnesium 2.2 mg/dL (1.6-2.6); Osmolality,Calculated 291 (280-300); Phosphorous 3.7 mg/dL (2.3-4.7); Potassium 3.9 mEq/L (3.5-4.5); Sodium 141 mEq/L (136-145); eGFR For African Americans > 60 (> 60); eGFR For Non-African Americans > 60 (> 60)
[2017-05-15] MEDS: Piperacillin/Tazobactam 3.375 GM in D5% in Water (Mini-Bag+) 100 ML IVPB SCH ×4 (08:38→23:59)
[2017-05-15] MEDS: Pantoprazole 40 MG VIAL IVP SCH (08:39)
--- NOTE | 2017-05-15 09:59 | General Surgery Progress Note ---
Date of Encounter: 05/15/17 Time of Encounter: 09:10 - Assessment and Plan (1) Esophageal perforation Current Visit: Yes Status: Acute Likely traumatic disruption of the Maria Del Rosario fundoplication secondary to retching. Her white blood cell count is normal and vital signs are normal. At this point our consensus is to start her on clear liquids and perform upper endoscopy on Tuesday. If the wrap appears to be intact we will start her on diet. Subjective Narrative: The patient feels well. She had some very mild chest discomfort that resolves spontaneously yesterday. She has no nausea and no abdominal pain. She has been afebrile and her vital signs stable. She is quite thirsty and I think it is reasonable to try her on clear liquids after extensive discussion about her case with my partners we have made a consensus decision to perform upper endoscopy to check the tension on the wrap seemed to make sure that it is constructed properly prior to restarting diet. Objective Vital Signs - Last 8 Hours Temp Pulse Resp BP Pulse Ox 05/15/17 06:26 97.7 F 66 16 97/61 96 05/15/17 04:13 97.3 F L 66 16 101/59 95 Intake and Output 05/14/17 05/15/17 05/15/17 23:59 07:59 15:59 Intake Total 300 / 300 650 / 650 Output Total 300 / 300 400 / 400 300 / 300 Balance 0 / 0 250 / 250 -300 / -300 Intake: IV Fluids 300 / 300 650 / 650 0.9 % Sodium Chloride 1, 200 / 200 000 ML @ 100 mls/hr IVC . Q10H [facility] Rx#:[id number] Ofirmev 1,000 mg/100 ml 1 200 / 200 100 / 100 ,000 mg In 100 ml @ 400 mls/hr IVPB Q6HR PRN Rx#: [id number] Intralipid 20% 250 ML @ 250 / 250 21 mls/hr IVPB DAILY@1700 [facility] Rx#:[id number] Zosyn 3.375 GM In 100 / 100 100 / 100 Dextrose 5% (Minibag+) 100 ML 100 ML @ 25 mls/hr IVPB Q8HR [facility] Rx#: [id number] Oral 0 / 0 Output: Urine 300 / 300 400 / 400 300 / 300 Other: Meal Dinner NPO npo # Bowel Movements 0 Weight 64.4 kg Blood Glucose* 118 144 Patient Weight 05/15/17 23:59 Weight 64.4 kg - General physical appearance well developed, well nourished, other (Very thirsty) - Respiratory normal expansion, normal respiratory effort, clear to percussion, clear to auscultation - Cardiovascular Cardiovascular exam: Present: RRR, no murmurs/rubs/gallops - Labs 05/11/17 17:30 05/15/17 04:40 Diabetes panel 05/15/17 Range/Units 04:40 Sodium 141 (136-145) mEq/L Potassium 3.9 (3.5-4.5) mEq/L Chloride 109 (98-109) mEq/L Carbon Dioxide 26 (19-29) mEq/L BUN 14 (7-20) mg/dL Creatinine 0.65 (0.57-1.11) mg/dL Glucose 76 (70-99) mg/dL Calcium 9.2 (8.6-10.8) mg/dL Calcium panel 05/15/17 Range/Units 04:40 Calcium 9.2 (8.6-10.8) mg/dL Phosphorus 3.7 (2.3-4.7) mg/dL Pituitary panel 05/15/17 Range/Units 04:40 Sodium 141 (136-145) mEq/L Potassium 3.9 (3.5-4.5) mEq/L Chloride 109 (98-109) mEq/L Carbon Dioxide 26 (19-29) mEq/L BUN 14 (7-20) mg/dL Creatinine 0.65 (0.57-1.11) mg/dL Glucose 76 (70-99) mg/dL Calcium 9.2 (8.6-10.8) mg/dL Adrenal panel 05/15/17 Range/Units 04:40 Sodium 141 (136-145) mEq/L Potassium 3.9 (3.5-4.5) mEq/L Chloride 109 (98-109) mEq/L Carbon Dioxide 26 (19-29) mEq/L BUN 14 (7-20) mg/dL Creatinine 0.65 (0.57-1.11) mg/dL Glucose 76 (70-99) mg/dL Calcium 9.2 (8.6-10.8) mg/dL Consult Discharge Plan - Plan Referrals: Leilani Cade, DEANDRE [Primary Care Provider] -
[2017-05-15] MEDS ORDERED: Clinimix E 5%-15% SOLUTION 2,000 ML with MVI, adult with vitamin K 10 ML IVC SCH (17:00)
[2017-05-16] MEDS: Ondansetron 4 MG/2 ML VIAL IVP SCH ×5 (02:15→21:50)
[2017-05-16 04:19] LABS: Hematocrit 41.5 % (35.3-44.9); Hemoglobin 13.3 g/dL (11.5-15.4); Mean Corpuscular Hemoglobin 28.1 pg (28.0-33.3); Mean Corpuscular Volume 87.6 fL (83.0-100.0); Mean Platelet Volume 11.2 fL (9.4-12.4); Platelet Count 128 K/mcL (140-400); Red Blood Count 4.74 M/mcL (3.82-4.97); Red Cell Distribution Width 12.8 % (11.5-14.5)
[2017-05-16 04:24] LABS: BUN/Creatinine Ratio 21 (6-26); Blood Urea Nitrogen 14 mg/dL (7-20); Calcium 9.4 mg/dL (8.6-10.8); Carbon Dioxide 25 mEq/L (19-29); Chloride 108 mEq/L (98-109); Glucose 85 mg/dL (70-99); Magnesium 2.1 mg/dL (1.6-2.6); Osmolality,Calculated 292 (280-300); Phosphorous 4.2 mg/dL (2.3-4.7); Sodium 141 mEq/L (136-145); eGFR For African Americans > 60 (> 60); eGFR For Non-African Americans > 60 (> 60)
[2017-05-16] MEDS: 0.9 % Sodium Chloride 1,000 ML IVC SCH (05:13)
[2017-05-16] MEDS: *HR* Heparin 5,000 UNIT/ML VIAL SQ SCH ×2 (05:14→17:21)
--- NOTE | 2017-05-16 08:18 | General Surgery Progress Note ---
Date of Encounter: 05/16/17 Time of Encounter: 07:30 - Assessment and Plan (1) Esophageal perforation Current Visit: Yes Status: Acute Likely traumatic disruption of the Maria Del Rosario fundoplication secondary to retching. Her white blood cell count is normal and vital signs are normal. At this point our consensus is to start her on clear liquids and perform upper endoscopy on Tuesday. If the wrap appears to be intact we will start her on diet. 05/16/2017. The patient is absolutely asymptomatic with no evidence of dysphagia, chest pain, abdominal pain. She is tolerating clear liquids. We will proceed with EGD tomorrow to evaluate the Maria Del Rosario fundoplication. Anticipate discharge tomorrow afternoon. Subjective Narrative: The patient tolerated clear liquids today with absolutely no difficulty. She denies chest pain or dysphagia. She denies abdominal pain. I think it is reasonable at this point to perform EGD to evaluate the Maria Del Rosario fundoplication and this will be done tomorrow. Nothing by mouth after midnight. Continue clear liquids today. Objective Vital Signs - Last 8 Hours Temp Pulse Resp BP Pulse Ox 05/16/17 06:48 97.6 F 74 15 102/61 98 05/16/17 03:57 97.6 F 74 15 99/62 96 Intake and Output 05/15/17 05/16/17 05/16/17 23:59 07:59 15:59 Intake Total 2526 / 2526 400 / 400 Output Total 2350 / 2350 1000 / 1000 Balance 176 / 176 -600 / -600 Intake: IV Fluids 1926 / 1926 400 / 400 0.9 % Sodium Chloride 1, 300 / 300 000 ML @ 100 mls/hr IVC . Q10H [facility] Rx#:[id number] Clinimix E 5%-15% 1826 / 1826 SOLUTION 2,000 ML @ 83.3 mls/hr IVC .Q24H [facility] with M.v.i. Adult 10 ml Rx#: [id number] Zosyn 3.375 GM In 100 / 100 100 / 100 Dextrose 5% (Minibag+) 100 ML 100 ML @ 25 mls/hr IVPB Q8HR [facility] Rx#: [id number] Oral 600 / 600 0 / 0 Output: Urine 2350 / 2350 1000 / 1000 Other: Meal Dinner # Bowel Movements 0 Weight 64.8 kg Blood Glucose* 126 122 Patient Weight 05/16/17 23:59 Weight 64.8 kg - General physical appearance well developed, well nourished - Respiratory normal expansion, normal respiratory effort, clear to percussion, clear to auscultation - Cardiovascular Cardiovascular exam: Present: RRR, no murmurs/rubs/gallops - Abdomen Abdomen: Present: bowel sounds present, soft, non tender - Psychiatric oriented to time, oriented to person, oriented to place, speech is normal, memory intact - Labs 05/16/17 04:05 05/16/17 04:05 Diabetes panel 05/16/17 Range/Units 04:05 Sodium 141 (136-145) mEq/L Potassium 4.0 (3.5-4.5) mEq/L Chloride 108 (98-109) mEq/L Carbon Dioxide 25 (19-29) mEq/L BUN 14 (7-20) mg/dL Creatinine 0.66 (0.57-1.11) mg/dL Glucose 85 (70-99) mg/dL Calcium 9.4 (8.6-10.8) mg/dL Calcium panel 05/16/17 Range/Units 04:05 Calcium 9.4 (8.6-10.8) mg/dL Phosphorus 4.2 (2.3-4.7) mg/dL Pituitary panel 05/16/17 Range/Units 04:05 Sodium 141 (136-145) mEq/L Potassium 4.0 (3.5-4.5) mEq/L Chloride 108 (98-109) mEq/L Carbon Dioxide 25 (19-29) mEq/L BUN 14 (7-20) mg/dL Creatinine 0.66 (0.57-1.11) mg/dL Glucose 85 (70-99) mg/dL Calcium 9.4 (8.6-10.8) mg/dL Adrenal panel 05/16/17 Range/Units 04:05 Sodium 141 (136-145) mEq/L Potassium 4.0 (3.5-4.5) mEq/L Chloride 108 (98-109) mEq/L Carbon Dioxide 25 (19-29) mEq/L BUN 14 (7-20) mg/dL Creatinine 0.66 (0.57-1.11) mg/dL Glucose 85 (70-99) mg/dL Calcium 9.4 (8.6-10.8) mg/dL Consult Discharge Plan - Plan Referrals: Leilani Cade, DEANDRE [Primary Care Provider] -
[2017-05-16] MEDS: Piperacillin/Tazobactam 3.375 GM in D5% in Water (Mini-Bag+) 100 ML IVPB SCH ×3 (08:41→23:03)
[2017-05-16] MEDS: Pantoprazole 40 MG VIAL IVP SCH (08:41)
[2017-05-16] MEDS ORDERED: Clinimix E 5%-15% SOLUTION 2,000 ML with MVI, adult with vitamin K 10 ML IVC SCH (17:00)
[2017-05-17] MEDS: Ondansetron 4 MG/2 ML VIAL IVP SCH ×3 (03:00→11:46)
[2017-05-17 04:59] LABS: BUN/Creatinine Ratio 24 (6-26); Blood Urea Nitrogen 16 mg/dL (7-20); Carbon Dioxide 25 mEq/L (19-29); Chloride 109 mEq/L (98-109); Glucose 122 mg/dL (70-99); Magnesium 2.2 mg/dL (1.6-2.6); Osmolality,Calculated 292 (280-300); Phosphorous 3.8 mg/dL (2.3-4.7); Potassium 4.2 mEq/L (3.5-4.5); Sodium 140 mEq/L (136-145); eGFR For African Americans > 60 (> 60); eGFR For Non-African Americans > 60 (> 60)
[2017-05-17] MEDS: *HR* Heparin 5,000 UNIT/ML VIAL SQ SCH (06:04)
[2017-05-17] MEDS: 0.9 % Sodium Chloride 1,000 ML IVC SCH (07:24)
[2017-05-17] MEDS: Piperacillin/Tazobactam 3.375 GM in D5% in Water (Mini-Bag+) 100 ML IVPB SCH (08:10)
[2017-05-17] MEDS: Pantoprazole 40 MG VIAL IVP SCH (08:11)
[2017-05-17] MEDS ORDERED: *HR* Midazolam HCl 5 MG/5 ML VIAL IVP ONE (09:50)
[2017-05-17] MEDS ORDERED: *HR* FentaNYL (PF) 100 MCG/2 ML VIAL ONE (09:51)
[2017-05-17] MEDS ORDERED: 0.9 % Sodium Chloride 500 ML IVC SCH (10:00)
[2017-05-17] MEDS ORDERED: *HR* FentaNYL (PF) 100 MCG/2 ML VIAL IVP PRN (10:00)
[2017-05-17] MEDS ORDERED: Tetracaine/Benzocaine/Butamben 200MG/SPRAY (100SPY/BOT) MM ONE (10:00)
[2017-05-17] MEDS ORDERED: Simethicone 40 MG/0.6 ML MLS IR ONE (10:00)
--- NOTE | 2017-05-17 10:02 | Pre-Sedation Evaluation ---
Pre-sedation evaluation - Pre-sedation checklist Date of procedure: 05/17/17 Procedure: EGD Recent Vitals: Last Vital Signs Temp 98 F 05/17/17 09:55 Pulse 73 05/17/17 09:55 Resp 18 05/17/17 09:55 BP 107/56 05/17/17 09:55 Pulse Ox 96 05/17/17 09:55 H&P (including ROS) documented in medical record: Yes Previous reaction to sedatives/anesthetics: No Dietary Status: NPO after Midnight Dentition: No loose teeth or bridges Possible difficult airway: No ASA Classification *see protocol: CLASS II-Mild systemic disease Plan of Care: Pt appropriate candidate for procedure/moderate/conscious sedation , Risks/benefits of procedure/sedation discussed w/ patient/family
[2017-05-17] MEDS: *HR* Midazolam HCl 5 MG/5 ML VIAL IVP PRN ×3 (10:06→10:12)
--- NOTE | 2017-05-17 10:31 | Discharge Summary ---
<Shantel Helm - Last Filed: 05/17/17 10:40> Date of Encounter: 05/17/17 Time of Encounter: 10:28 - Discharge Diagnosis (1) Esophageal perforation Priority: Primary Status: Resolved Comments: No clinical evidence of perforation (2) DVT prophylaxis Priority: Secondary Status: Resolved - Discharge Medications Prescriptions: Ondansetron ODT [Zofran ODT] 4 mg SL Q4HR #30 tab.rapdis Home Medications: Ondansetron ODT [Zofran ODT] 4 mg SL Q4HR #30 tab.rapdis 05/17/17 [Rx] Allergies/Adverse Reactions: 3 Allergy/AdvReac Type Severity Reaction Status Date / Time No Known Allergies Allergy Verified 02/10/17 12:44 General Surgery Exam Initial Vital Signs Temp Resp BP Pulse Ox 97.5 F L 15 106/55 64 05/11/17 19:39 05/11/17 19:39 05/11/17 19:39 05/11/17 19:39 - General physical appearance well developed, well nourished, no distress - Eyes PERRL, normal ocular movement - ENT normal nares, normal mucosa, atraumatic, normocephalic - Neck no masses, no bruits, trachea midline, no lymphadectomy, no venous distension - Respiratory normal expansion, normal respiratory effort, clear to percussion, clear to auscultation - Cardiovascular Cardiovascular exam: Present: RRR, 15, 16 - Abdomen Abdomen general surgery: Present: bowel sounds present, soft, non tender - Integumentary Integumentary general surgery: Present: warm and dry, no abnormal pigmentation - Neurologic Present: CN 2-12 grossly intact, normal coordination, normal sensation - Musculoskeletal Present: normal gait, normal posture - Psychiatric Psychiatric general surgery: Present: A&Ox3, appropriate, oriented to person, oriented to place, oriented to time, speech is normal, memory intact Date of admission: 05/11/17 16:33 Primary care physician: Leilani Cade Consults: 05/12/17 10:29 consult to director of veterans affairs [Consult to Nutrition] [CONS] Routine Comment: TOTAL IVF 100 ml/hr Consulting Provider: NUTRITION Reason for Dietary Consult: TPN Start and Manage Other:: Esophageal perforation. Please start and titrate TPN and lipids 05/12/17 10:52 Consult to Invasive Line Access Team [CONS] Routine Reason for Consult: Picc Line Insertion Line Type: PICC Discharging clinician: Alexandr Helm) - Patient Status Disposition: Home, Self-Care Condition: Good Overall status at discharge: patient is progressing back to baseline - Discharge Instructions Follow Up With: Alexandr Bustamante MD [Partnered Physician] - 05/27/17 2:30 pm (Follow-up at [place] office) Additional Instructions: Full liquid diet for one week. - Diet and Activity Activity: resume usual activities as tolerated Diet: other (Full liquid diet only. See handout for additional information) - Hospital Course Hospital course: Ms. Baldwin is a 61 year old female who is status post Maria Del Rosario fundoplication. She followed up in the office and reported nausea and vomiting. She completed an upper G.I. which demonstrated a possible esophageal perforation. She was made in PO, treated with IV fluids, nutrition provided by a TPN, and a repeat EGD was completed on 05/17/2017 which was unremarkable. She states that her nausea has resolved. She denies abdominal pain. She is ambulating and voiding without difficulty. We will do a quick burk of TPN by decreasing TPN to 50 mL now and stopping at 1 PM today we will advance her to a full liquid diet for which she will remain for one week. We will begin DC planning and follow-up in the office with Dr. Vee in 2 weeks. - Time Spent with Patient Total time spent providing and/or coordinating discharge services: Less than 30 minutes Labs on day of discharge: Labs from last 24 hours 05/17/17 05/17/17 05/17/17 07:08 04:44 04:30 Sodium 140 Potassium 4.2 Chloride 109 Carbon Dioxide 25 BUN 16 Creatinine 0.67 Est GFR ( Amer) > 60 Est GFR (Non-Af Amer) > 60 BUN/Creatinine Ratio 24 Glucose 122 H POC Glucose 152 H 125 H Calculated Osmolality 292 Calcium 9.0 Phosphorus 3.8 Magnesium 2.2 05/17/17 05/16/17 05/16/17 00:36 20:26 16:10 Sodium Potassium Chloride Carbon Dioxide BUN Creatinine Est GFR ( Amer) Est GFR (Non-Af Amer) BUN/Creatinine Ratio Glucose POC Glucose 137 H 116 H 105 H Calculated Osmolality Calcium Phosphorus Magnesium 05/16/17 05/16/17 11:07 07:24 Sodium Potassium Chloride Carbon Dioxide BUN Creatinine Est GFR ( Amer) Est GFR (Non-Af Amer) BUN/Creatinine Ratio Glucose POC Glucose 99 H 122 H Calculated Osmolality Calcium Phosphorus Magnesium - Impressions ITS Impressions Abdomen CT 05/11/17 16:42 IMPRESSION: 1. Findings are consistent with patient history of focal distal esophageal leak at the patient's Maria Del Rosario fundoplication, with a 3.1 x 1.6 cm fluid and gas collection lying anteromedial to the Maria Del Rosario fundoplication within the lower mediastinum, likely a small phlegmon/abscess. There is no evidence of pneumomediastinum or intraperitoneal free air. 2. No acute intrapulmonary findings. 3. Stable hepatic cysts. D/ : / 05/11/2017 20:53:28 Fernando Smith MD / Natasha Diaz Interpreting Provider: Fernando Smith MD Chest CT 05/11/17 16:42 IMPRESSION: 1. Findings are consistent with patient history of focal distal esophageal leak at the patient's Maria Del Rosario fundoplication, with a 3.1 x 1.6 cm fluid and gas collection lying anteromedial to the Maria Del Rosario fundoplication within the lower mediastinum, likely a small phlegmon/abscess. There is no evidence of pneumomediastinum or intraperitoneal free air. 2. No acute intrapulmonary findings. 3. Stable hepatic cysts. D/ /11/2017 20:53:28 Fernando Smith MD / Natasha Diaz Interpreting Provider: Fernando Smith MD <Alexandr Bustamante T - Last Filed: 05/18/17 10:21> Date of Encounter: 05/17/17 - Discharge Diagnosis (1) Esophageal perforation Status: Resolved General Surgery Exam Initial Vital Signs Temp Resp BP Pulse Ox 97.5 F L 15 106/55 64 05/11/17 19:39 05/11/17 19:39 05/11/17 19:39 05/11/17 19:39 Date of admission: 05/11/17 16:33 Primary care physician: Leilani Cade Consults: 05/12/17 10:29 consult to director of veterans affairs [Consult to Nutrition] [CONS] Routine Comment: TOTAL IVF 100 ml/hr Consulting Provider: NUTRITION Reason for Dietary Consult: TPN Start and Manage Other:: Esophageal perforation. Please start and titrate TPN and lipids 05/12/17 10:52 Consult to Invasive Line Access Team [CONS] Routine Reason for Consult: Picc Line Insertion Line Type: PICC - Hospital Course Hospital course: Ms. Baldwin is a 61 year old female - Time Spent with Patient Total time spent providing and/or coordinating discharge services: Labs on day of discharge: Labs from last 24 hours 05/17/17 11:04 POC Glucose 91 H - Impressions ITS Impressions Abdomen CT 05/11/17 16:42 IMPRESSION: 1. Findings are consistent with patient history of focal distal esophageal leak at the patient's Maria Del Rosario fundoplication, with a 3.1 x 1.6 cm fluid and gas collection lying anteromedial to the Maria Del Rosario fundoplication within the lower mediastinum, likely a small phlegmon/abscess. There is no evidence of pneumomediastinum or intraperitoneal free air. 2. No acute intrapulmonary findings. 3. Stable hepatic cysts. D/ : / 05/11/2017 20:53:28 Fernando Smith MD / Natasha Diaz Interpreting Provider: Fernando Smith MD Chest CT 05/11/17 16:42 IMPRESSION: 1. Findings are consistent with patient history of focal distal esophageal leak at the patient's Maria Del Rosario fundoplication, with a 3.1 x 1.6 cm fluid and gas collection lying anteromedial to the Maria Del Rosario fundoplication within the lower mediastinum, likely a small phlegmon/abscess. There is no evidence of pneumomediastinum or intraperitoneal free air. 2. No acute intrapulmonary findings. 3. Stable hepatic cysts. D/ /11/2017 20:53:28 Fernando Smith MD / Natasha Diaz Interpreting Provider: Fernando Smith MD - Attending Attestation I have personally performed a face to face evaluation on this patient. I have reviewed and agree with the care plan. History and Exam by me shows: The patient is seen and evaluated endoscopy was performed. EGD is completely normal. The Marai Del Rosario is completely intact with no evidence of hiatal hernia recurrence or breakdown of the Maria Del Rosario. There are no mucosal abnormalities. The patient will be discharged on full liquid diet. I will follow her in 1 week. Alexandr Bustamante MD FACS
[2017-05-17 10:48] VITALS: BP 95/66
== END 2017-05-17 14:05 | disposition home or self-care (01) | DRG 370 ==
LOC: 3ANU
PROVIDERS: ADMIT Surgery; ATTEND Surgery